=== PATIENT | female | born 1955 | race Caucasian/White ===

== ENCOUNTER → 2023-09-28 | Outpatient (CLI) | payer BC, MEDICARE ==
[~2023-09-28] MED LIST: ATOR1TAB19 PO; E-Z-GAS II EFFERVESCENT PACKET (SODIUM BICARB./CITRIC ACID/SIMETHICONE) As Ordered ONE; E-Z-HD 98% w/w 340GM SUSP BTL As Ordered ONE; E-Z-PAQUE 96% w/w SUSP 176GM BTL As Ordered ONE; FOLI1TAB11 PO; HUMI40IN2 SC; HUMI40KI2 SC; JARD1TAB PO; LEVO88TA3 PO; LISI10TA22 PO; OMEP-173 PO; OMEP40CA5 PO; XIID5DRO OU
== END ==
LOC: M RAD 08:01
PROVIDERS: ATTEND Surgery
DX: K21.00 Gastro-esophageal reflux disease with esophagitis, without bleeding (principal); R12 Heartburn

== ENCOUNTER 2023-10-13 06:34 | Day surgery (SDC) | payer BC, MEDICARE ==
[~2023-10-13] VITALS: Ht 162.6 cm; Wt 82.4 kg
[~2023-10-13 06:34] MED LIST changes: -E-Z-GAS II EFFERVESCENT PACKET (SODIUM BICARB./CITRIC ACID/SIMETHICONE) As Ordered ONE; -E-Z-HD 98% w/w 340GM SUSP BTL As Ordered ONE; -E-Z-PAQUE 96% w/w SUSP 176GM BTL As Ordered ONE
[2023-10-13] MEDS: NS 1,000 ML IV ONE (07:11)
[2023-10-13] MEDS ORDERED: propofoL 200 MG/20 ML VIAL As Ordered ONE (07:47)
[2023-10-13] MEDS ORDERED: LIDOCAINE 2% 100MG/5ML SDV (FOR ANES.) As Ordered ONE (07:48)
[2023-10-13 08:10] VITALS: TEMP 97.4
[2023-10-13 08:36] VITALS: BP 117/58; O2SAT 99
== END 2023-10-13 08:43 | disposition home or self-care (01) ==
LOC: M OPP 06:34
PROVIDERS: ATTEND Surgery
DX: K64.8 Other hemorrhoids (principal); K64.4 Residual hemorrhoidal skin tags; R19.4 Change in bowel habit; K44.9 Diaphragmatic hernia without obstruction or gangrene; R12 Heartburn; E11.9 Type 2 diabetes mellitus without complications; G47.30 Sleep apnea, unspecified; Z79.02 Long term (current) use of antithrombotics/antiplatelets; Z79.4 Long term (current) use of insulin; Z79.890 Hormone replacement therapy; Z79.899 Other long term (current) drug therapy; Z88.1 Allergy status to other antibiotic agents; Z91.040 Latex allergy status

== ENCOUNTER → 2023-12-01 | Outpatient (CLI) | payer BC, MEDICARE ==
[~2023-12-01] MED LIST changes: +GASTROGRAFIN SOLUTION 30ML As Ordered ONE; +ISOVUE-370 76% 100ML VIAL As Ordered ONE
== END ==
LOC: M RAD 10:53
PROVIDERS: ATTEND Physician Assistant
DX: N28.1 Cyst of kidney, acquired (principal); K44.9 Diaphragmatic hernia without obstruction or gangrene; R10.9 Unspecified abdominal pain; R14.0 Abdominal distension (gaseous); R63.4 Abnormal weight loss
CPT/HCPCS: 74177; Q9963; Q9967